=== PATIENT | male | born 1970 | race Caucasian/White ===

== ENCOUNTER 2020-01-05 13:59 | Outpatient (CLI) | payer OTHER ==
--- NOTE | 2020-01-05 15:30 | CT ---
CT LUMBAR SPINE WITHOUT CONTRAST: 01/05/20 INDICATIONS: Lumbar spinal stenosis. Neurogenic claudication with low back pain. COMPARISON: Comparison made to a prior lumbar CT dated July 2008. FINDINGS: The lumbar vertebrae maintain normal height and alignment. There is mild loss of disc space at L5-S1 which has progressed since the prior exam. Mild to moderate degenerative osteophytes from the lumbar vertebrae have also progressed since the prior exam. The other disc spaces are relatively well preser chuy. There is no evidence of spondylolisthesis or spondylolysis. At L1-2, mild disc bulge. No central canal or foraminal stenosis. At L2-3, mild disc bulge abuts the thecal sac. Mild facet hypertrophy. No significant central canal o r foraminal stenosis. At L3-4, mild diffuse disc bulge flattens the anterior thecal sac. Mild facet hypertrophy. Mild centr al canal stenosis. Asymmetric osteophyte complex to the left appears to contact the exiting left L3 n erve root. At L4-5, broad based disc bulge is more pronounced. Facet and ligamentous hypertrophy is more pronoun zuly. These changes result in moderate to severe central canal stenosis which has progressed since 200 8. Mild bilateral foraminal encroachment due to diffuse disc bulge and facet hypertrophy. At L5-S1, mild diffuse disc bulge. Mild facet hypertrophy. Mild central canal stenosis. Bilateral for aminal stenosis secondary to disc bulge and hypertrophic change. IMPRESSION: 1. Moderate to severe central canal stenosis now seen at L4-5. 2. Bilateral foraminal stenosis at L5-S1. 3. See description at each level above. POS: [facility]
== END 2020-01-05 14:00 | disposition home or self-care (01) ==
LOC: BICCT 13:59
PROVIDERS: ATTEND Nurse Practitioner Family
DX: M48.062 Spinal stenosis, lumbar region with neurogenic claudication (principal); M48.07 Spinal stenosis, lumbosacral region; M48.8X6 Other specified spondylopathies, lumbar region; M48.8X7 Other specified spondylopathies, lumbosacral region
CPT/HCPCS: 72131

== ENCOUNTER 2023-08-11 13:51 | Outpatient (CLI) | payer BC | END 2023-08-11 13:52 | disposition home or self-care (01) | LOC: ULT 13:51 | PROVIDERS: ATTEND Internal Medicine Nephrology | DX: N18.30 Chronic kidney disease, stage 3 unspecified (principal); N20.0 Calculus of kidney | CPT/HCPCS: 76770 ==